=== PATIENT | female | born 1955 | race Caucasian/White ===

== ENCOUNTER 2017-02-11 09:52 | Outpatient (CLI) | payer OTHER ==
--- NOTE | 2017-02-11 12:33 | MMO ---
BILATERAL DIAGNOSTIC MAMMOGRAMS: HISTORY: This 61-year-old female returns for additional views of both breasts to evaluate a nodular density in the central aspect of the right breast and an asymmetric density in the outer aspect of the left jazmine ast as seen on the CC view. This patient's mammogram is interpreted with the assistance of computer-aided detection. The breasts are heterogeneously dense which can lower the sensitivity of mammography. Stable-appeari ng typically benign calcifications are noted bilaterally. The circumscribed mass in the central aspe ct of the right breast is redemonstrated measuring approximately 0.6 x 0.7 cm in size. The area of a symmetric density in the outer aspect of the left breast compresses out. Followup right breast ultrasound confirmed circumscribed mass in the central right breast to be a cys t. IMPRESSION: BI-RADS category 2, benign findings. Benign cyst in the central aspect of the right breast. Typical ly benign calcifications bilaterally. Continued annual followup mammograms. BIRADS 2: Benign Finding(s) Routine annual screening mammography (for women over age 40) POS: DENIS
--- NOTE | 2017-02-11 12:35 | ULT ---
RIGHT BREAST ULTRASOUND: HISTORY: A 61-year-old female with a circumscribed mass on right mammogram and the central aspect of the right breast. FINDINGS: The central retroareolar region of the right breast is evaluated with ultrasound. There is an approx imately 0.4 x 0.5 x 0.6 cm diameter circumscribed thin-walled cyst in the central aspect of the right breast which corresponds to the mammographic area of concern. IMPRESSION: BI-RADS category 2, benign findings. Retroareolar thin-walled benign cyst in the central aspect of t he right breast corresponding to the area of mammographic concern. Continued annual followup mammogr ams. POS: ARIANA
== END 2017-02-11 09:53 | disposition home or self-care (01) ==
LOC: MAMMO 09:52
PROVIDERS: ATTEND Family Medicine
DX: R92.2 Inconclusive mammogram (principal)
CPT/HCPCS: 77066; G0204

== ENCOUNTER 2018-07-24 12:32 | Outpatient (CLI) | payer OTHER ==
--- NOTE | 2018-07-24 16:46 | MMO ---
Bilateral MAMMO Bilat Screen [facility]. CLINICAL HISTORY: Patient is 63 years old and is seen for screening. The patient has no family history of breast cancer. The patient has no personal history of cancer. VIEWS: The views performed were: bilateral craniocaudal with tomosynthesis; bilateral mediolateral oblique with tomosynthesis; and bilateral exaggerated craniocaudal. FILMS COMPARED: The present examination has been compared to prior imaging studies performed at [facility] on 03/31/2013, 06/21/2014, 09/04/2015, 01/29/2017 and 02/11/2017. MAMMOGRAM FINDINGS: The breasts are heterogeneously dense, which could obscure a lesion on mammography. Benign calcifications are noted bilaterally. Nodularity is stable. There are no suspicious masses, suspicious calcifications, or new areas of architectural distortion. IMPRESSION: THERE IS NO MAMMOGRAPHIC EVIDENCE OF MALIGNANCY. A ROUTINE FOLLOW-UP MAMMOGRAM IN 1 YEAR IS RECOMMENDED. THE RESULTS OF THIS EXAM WERE SENT TO THE PATIENT. ACR BI-RADS Category 2 - Benign finding MAMMOGRAPHY NOTE: 1. A negative mammogram report should not delay a biopsy if a dominant of clinically suspicious mass is present. 2. Approximately 10% to 15% of breast cancers are not detected by mammography. 3. Adenosis and dense breasts may obscure an underlying neoplasm.
== END 2018-07-24 12:33 | disposition home or self-care (01) ==
LOC: BICMAMMO 12:32
PROVIDERS: ATTEND Family Medicine
DX: Z12.31 Encounter for screening mammogram for malignant neoplasm of breast (principal)
CPT/HCPCS: 77063; 77067

== ENCOUNTER 2020-12-25 10:45 | Outpatient (CLI) | payer MEDICARE, OTHER | END 2020-12-25 10:46 | disposition home or self-care (01) | LOC: BICMAMMO 10:45 | PROVIDERS: ATTEND Family Medicine | DX: Z12.31 Encounter for screening mammogram for malignant neoplasm of breast (principal); Z80.3 Family history of malignant neoplasm of breast | CPT/HCPCS: 77063; 77067 ==

== ENCOUNTER 2021-12-26 07:55 | Outpatient (CLI) | payer MEDICARE, OTHER | END 2021-12-26 07:56 | disposition home or self-care (01) | LOC: BICMAMMO 07:55 | PROVIDERS: ATTEND Family Medicine | DX: Z12.31 Encounter for screening mammogram for malignant neoplasm of breast (principal); R92.1 Mammographic calcification found on diagnostic imaging of breast; Z80.3 Family history of malignant neoplasm of breast | CPT/HCPCS: 77063; 77067 ==

== ENCOUNTER 2023-03-06 08:52 | Outpatient (CLI) | payer MEDICARE, OTHER | END 2023-03-06 08:53 | disposition home or self-care (01) | LOC: BICMAMMO 08:52 | PROVIDERS: ATTEND Family Medicine | DX: Z12.31 Encounter for screening mammogram for malignant neoplasm of breast (principal); Z80.3 Family history of malignant neoplasm of breast | CPT/HCPCS: 77063; 77067 ==

== ENCOUNTER 2024-03-01 14:14 | Outpatient (CLI) | payer MEDICARE, OTHER | END 2024-03-01 14:15 | disposition home or self-care (01) | LOC: BICMAMMO 14:14 | PROVIDERS: ATTEND Family Medicine | DX: Z78.0 Asymptomatic menopausal state (principal); M85.851 Other specified disorders of bone density and structure, right thigh; M85.852 Other specified disorders of bone density and structure, left thigh | CPT/HCPCS: 77080 ==

== ENCOUNTER 2024-05-07 11:12 | Outpatient (CLI) | payer MEDICARE, OTHER | END 2024-05-07 11:13 | disposition home or self-care (01) | LOC: BICMAMMO 11:12 | PROVIDERS: ATTEND Family Medicine | DX: Z12.31 Encounter for screening mammogram for malignant neoplasm of breast (principal); Z80.3 Family history of malignant neoplasm of breast | CPT/HCPCS: 77063; 77067 ==